=== PATIENT | male | born 1945 | race Caucasian/White ===

== ENCOUNTER 2022-08-16 10:29 | Emergency (ER) | payer OTHER ==
[2022-08-16] MEDS ORDERED: Albuterol/Ipratropium 3.0-0.5 MG/3 ML Neb Soln NEB ONE (10:48)
[2022-08-16 11:23] LABS: CORONAVIRUS COVID-19 NAA NEGATIVE (NEGATIVE); RESPIRATORY SYNCYTIAL VIR NAA NEGATIVE (NEGATIVE)
== END 2022-08-16 12:48 | disposition home or self-care (01) ==
LOC: DL.ED 10:29
DX: J45.901 Unspecified asthma with (acute) exacerbation (principal); Z79.899 Other long term (current) drug therapy; Z87.891 Personal history of nicotine dependence; Z20.822 Contact with and (suspected) exposure to COVID-19
CPT/HCPCS: 0241U; 36415; 71045; 85025; 94640; 99285; J7620-GY

== ENCOUNTER 2023-01-01 06:23 | Day surgery (SDC) | payer OTHER ==
[~2023-01-01 06:23] MED LIST: Sodium Chloride 0.9% 10 ML Syringe FLUSH PRN
[2023-01-01] MEDS ORDERED: Povidone-Iodine 5% Sterile Ophth Soln 30 ML Bottle EYERT ONE ×3 (06:30→08:32)
[2023-01-01] MEDS ORDERED: Timolol Maleate 0.5% Ophth Soln 5 ML Bottle EYERT ONE (06:30)
[2023-01-01] MEDS ORDERED: Proparacaine 0.5% Ophth Soln 15 ML Bottle EYERT ONE ×3 (06:30→08:32)
[2023-01-01] MEDS ORDERED: Acetaminophen 325 MG Tab PO PRN (06:30)
[2023-01-01] MEDS ORDERED: Phenylephrine 10% Ophth Soln 5 ML Bot EYERT PRN (06:30)
[2023-01-01] MEDS ORDERED: Cataract Ophth Solution EYERT ONE (06:30)
[2023-01-01] MEDS ORDERED: Moxifloxacin 0.5% Ophth Soln 3 ML Bottle EYERT ONE (06:30)
[2023-01-01] MEDS ORDERED: Acetaminophen/Codeine 300-30 MG Tab PO PRN (06:30)
[2023-01-01] MEDS ORDERED: Ondansetron 4 MG/2 ML SDV IVPUSH PRN (06:30)
[2023-01-01] MEDS ORDERED: Tropicamide 1% Ophth Soln 15 ML Bottle EYERT ONE (06:30)
[2023-01-01] MEDS ORDERED: Apraclonidine 0.5% Ophth Soln 5 ML Bot EYERT ONE ×2 (07:16→08:32)
[2023-01-01] MEDS ORDERED: Diclofenac Sodium 0.1% Ophth Soln 5 ML Bottle EYERT ONE ×2 (07:18→08:32)
[2023-01-01] MEDS ORDERED: Dexamethasone/Neomycin/Polymyxin B Ophth Oint 3.5 GM Tube EYERT ONE ×2 (07:19→08:35)
[2023-01-01] MEDS ORDERED: Lidocaine 1% 5 ML VIAL ONE ×2 (07:20→08:36)
[2023-01-01] MEDS ORDERED: Balanced Salt Solution Ophth Irrig 500 ML Bottle IOCULAR ONE ×2 (07:21→08:36)
[2023-01-01] MEDS ORDERED: Vancomycin 500 MG SDV EYERT ONE ×2 (07:22→08:33)
[2023-01-01] MEDS ORDERED: Chondroitin Sulfate/Hyaluronate Sodium Ophth Inj 0.75 ML Syringe EYERT ONE ×2 (07:23→08:33)
== END 2023-01-01 09:15 | disposition home or self-care (01) ==
LOC: DL.SDS 06:23
PROVIDERS: ATTEND Ophthalmology
DX: E11.36 Type 2 diabetes mellitus with diabetic cataract (principal); H25.811 Combined forms of age-related cataract, right eye; I10 Essential (primary) hypertension; K21.9 Gastro-esophageal reflux disease without esophagitis; J45.909 Unspecified asthma, uncomplicated; G47.30 Sleep apnea, unspecified; Z79.84 Long term (current) use of oral hypoglycemic drugs; Z79.899 Other long term (current) drug therapy
CPT/HCPCS: 00142; A9270-GY; J3370; J3490; V2632

== ENCOUNTER 2023-02-12 09:42 | Day surgery (SDC) | payer SELFPAY ==
[2023-02-12] MEDS ORDERED: Moxifloxacin 0.5% Ophth Soln 3 ML Bottle EYELF ONE (09:45)
[2023-02-12] MEDS ORDERED: Proparacaine 0.5% Ophth Soln 15 ML Bottle EYELF ONE ×2 (09:45→10:42)
[2023-02-12] MEDS ORDERED: Phenylephrine 10% Ophth Soln 5 ML Bot EYELF PRN (09:45)
[2023-02-12] MEDS ORDERED: Ondansetron 4 MG/2 ML SDV IVPUSH PRN (09:45)
[2023-02-12] MEDS ORDERED: Acetaminophen/Codeine 300-30 MG Tab PO PRN (09:45)
[2023-02-12] MEDS ORDERED: Timolol Maleate 0.5% Ophth Soln 5 ML Bottle EYELF ONE (09:45)
[2023-02-12] MEDS ORDERED: Tropicamide 1% Ophth Soln 15 ML Bottle EYELF ONE (09:45)
[2023-02-12] MEDS ORDERED: Povidone-Iodine 5% Sterile Ophth Soln 30 ML Bottle EYELF ONE ×2 (09:45→10:43)
[2023-02-12] MEDS ORDERED: Sodium Chloride 0.9% 10 ML Syringe FLUSH PRN (09:45)
[2023-02-12] MEDS ORDERED: Cataract Ophth Solution EYELF ONE (09:45)
[2023-02-12] MEDS ORDERED: Acetaminophen 325 MG Tab PO PRN (09:45)
[2023-02-12] MEDS ORDERED: Apraclonidine 0.5% Ophth Soln 5 ML Bot EYELF ONE (10:43)
[2023-02-12] MEDS ORDERED: Dexamethasone/Neomycin/Polymyxin B Ophth Oint 3.5 GM Tube EYELF ONE (10:44)
[2023-02-12] MEDS ORDERED: Diclofenac Sodium 0.1% Ophth Soln 5 ML Bottle EYELF ONE (10:44)
[2023-02-12] MEDS ORDERED: Balanced Salt Solution Ophth Irrig 500 ML Bottle IOCULAR ONE (10:45)
[2023-02-12] MEDS ORDERED: Lidocaine 1% 30 ML SDV ONE (10:45)
[2023-02-12] MEDS ORDERED: Vancomycin 500 MG SDV EYELF ONE (10:45)
[2023-02-12] MEDS ORDERED: Chondroitin Sulfate/Hyaluronate Sodium Ophth Inj 0.75 ML Syringe EYELF ONE (10:46)
== END 2023-02-12 11:27 | disposition home or self-care (01) ==
LOC: DL.SDS 09:42
PROVIDERS: ATTEND Ophthalmology
DX: E11.36 Type 2 diabetes mellitus with diabetic cataract (principal); H25.812 Combined forms of age-related cataract, left eye; I10 Essential (primary) hypertension; E78.00 Pure hypercholesterolemia, unspecified; K21.9 Gastro-esophageal reflux disease without esophagitis; Z98.890 Other specified postprocedural states
CPT/HCPCS: 00142; A9270-GY; J3370; J3490; V2632